=== PATIENT | female | born 1970 | race Caucasian/White ===

== ENCOUNTER 2017-07-21 10:41 | Inpatient (IN) | payer MEDICAID ==
[~2017-07-21] VITALS: Ht 165.1 cm; Wt 66.1 kg
--- NOTE | ~2017-07-21 | HEMODYNAMI ---
PATIENT:AURA BRASHER MEDICAL RECORD: [id number] : 66 LOCATION: D.2223 ADMISSION DATE: 07/21/17 Generatedon:07/22/20179:54 Patient name: AURA BRASHER Patient #: [id number] SSN: : 1970 Date of study: 07/22/2017 Page: Of Hemodynamic Procedure Report Patient Data Patient Demographics Procedure consent was obtained First Name: AURA Gender: Female Last Name: SAMEERA : 1970 Patient #: [id number] Age: 46 year(s) Race: Unknown Additional ID: [id number] Contact details [address]: [address] [place] [address] State: [place] City: [place] Zip code: [address] Admission Admission Data Admission Date: 07/21/2017 Admission Time: 16:02 Room #: D.2223 Procedure Procedure Types Cath Procedure Peripheral Cath Diagnostic Procedure Miscellaneous Procedure Description Procedure Date Procedure Date: 07/22/2017 Procedure Start Time: 9:25 Procedure Staff Name Function Domingo Webster MD Performing Physician Delio Darling RT Monitor Dora Dugan RN Nurse Procedure Medications Medication Administration Route Dosage Versed I.V. 2 mg Fentanyl I.V. 100 mcg Hemodynamics Rest Pre Cath Intra NCS Post Cath Vital Signs Time Heart Resp SPO2 etCO2 NIBP (mmHg) Rhythm Pain Sedation Rate (ipm) (%) (mmHg) Status Level (bpm) 8:43:56 95 89/67(78) NSR 0 (11) 10(A) , No pain 8:48:38 119 16 97 0 126/81(112) NSR 0 (11) 10(A) , No pain 8:52:42 119 13 98 0 125/79(96) NSR 0 (11) 10(A) , No pain 8:56:44 117 13 99 0 120/83(98) NSR 0 (11) 10(A) , No pain 9:00:45 117 13 0 122/78(104) NSR 0 (11) 10(A) , No pain 9:04:47 117 13 99 0 120/80(98) NSR 0 (11) 10(A) , No pain 9:08:49 117 14 0.7 121/78(99) NSR 0 (11) 10(A) , No pain 9:12:50 119 15 99 0 122/78(99) NSR 0 (11) 10(A) , No pain 9:16:54 118 13 99 0.7 121/74(98) NSR 0 (11) 10(A) , No pain 9:20:56 120 14 0.7 118/78(99) NSR 0 (11) 10(A) , No pain 9:24:56 122 15 0.7 123/79(95) NSR 0 (11) 10(A) , No pain 9:28:57 123 10 97 0.7 123/79(94) NSR 0 (11) 10(A) , No pain 9:33:03 120 11 95 0 120/71(94) NSR 0 (11) 10(A) , No pain 9:37:09 118 9 96 0 107/66(80) NSR 0 (11) 10(A) , No pain 9:41:11 116 8 98 0.7 102/63(80) NSR 0 (11) 10(A) , No pain 9:45:10 116 10 99 0.7 107/66(86) NSR 0 (11) 10(A) , No pain 9:49:12 119 17 99 0.7 109/65(82) NSR 0 (11) 10(A) , No pain 9:53:13 115 8 99 0.7 106/67(83) NSR 0 (11) 10(A) , No pain Medications Time Medication Route Dose Verified Delivered Reason Notes Effectivenes s by by 9:32:39 Versed I.V. 2 mg Domingo John for Eleanor Dugan RN sedation 9:32:50 Fentanyl I.V. 100 Domingo John for [facility] Eleanor Dugan RN sedation Procedure Log Time Note 8:40:47 Delio Darling RT (R) (CV) sent for patient. Start room use. 8:41:01 Time tracking: Regular hours 8:41:06 Plan of Care:Hemodynamics will remain stable., Cardiac rhythm will remain stable., Comfort level will be maintained., Respiratory function will remain adequate., Patient/ family verbilizes understanding of procedure., Procedure tolerated without complication., Recovers from procedure without complications.. 8:41:12 Patient arrived from Med/Surg to IR. Patient remains on bed/stretcher for procedure. 8:41:14 Correct patient and procedure confirmed by team. 8:41:16 Signed procedure consent form obtained from patient. 8:41:17 Full Disclosure recording started 8:41:17 8:41:20 H&P Date Dictated: 07/22/2017 Within 30 days and on chart.. 8:41:21 Pre-procedure instructions explained to patient. 8:41:21 Pre-op teaching completed and patient verbalized understanding. 8:41:23 Family in waiting room. 8:41:25 Patient NPO since Midnight. 8:41:30 Is the patient allergic to Iodine/contrast media? No. 8:41:32 Is patient on blood thinner?No 8:41:34 Patient diabetic? No. 8:41:35 8:41:35 ----Pre-sedation anethsthesia assessment.---- 8:41:37 Previous problem with sedation/anesthesia? No ? 8:41:38 Snore? Yes 8:41:40 Sleep apnea? No 8:41:42 Deviated septum? No 8:41:44 Opens mouth fully? Yes 8:41:45 Sticks out tongue? Yes 8:41:48 Airway obstruction? No ? 8:41:59 Dentures? Yes upper 8:42:04 Patient pain scale 0/10 no pain. 8:42:11 IV patent on arrival in left hand with 0.9% NaCl at [facility]. 8:42:16 Sharps counted by scrub and verified by R.N. 8:42:17 Alarms reviewed by R. N. 8:42:23 Right abdomen area was prepped with chlora-prep and draped in sterile fashion 8:42:37 Use device set IR Diagnostic 8:42:38 Bag Decanter ([id number]) opened to sterile field. 8:42:38 Sterile Angiographic Pack opened to sterile field. 8:42:44 ECG and BP/O2 sat monitors applied to patient. 8:42:44 Vital chart was started 9:23:14 Physician arrived 9:24:00 [id number] 8FR CATH DRAIN TRAY opened to sterile field. 9:24:26 --------ALL STOP TIME OUT------ 9:24:27 Final Timeout: patient, procedure, and site verified with staff and physician. All members of the team are in agreement. 9:24:32 Sedation plan: IV Moderate Sedation Medication:Versed, Fentanyl 9:25:07 Procedure started. 9:25:13 Local anesthetic to Abdominal area with Lidocaine 1% by Domingo Webster MD.INITIAL ACCESS ONLY 9:32:39 Versed 2 mg I.V. was administered by Dora Dugan RN; for sedation; 9:32:50 Fentanyl 100 mcg I.V. was administered by Dora Dugan RN; for sedation; 9:39:32 [id number] 8FR CATH DRAIN TRAY opened to sterile field. 9:49:02 Procedure ended.(Physican Out) 9:49:31 Sharps counted by scrub and verified by R.N. 9:49:47 5.1 liters fluid 9:49:50 Insertion/operative site no bleeding no hematoma. 9:50:24 Post-op/insertion site Right Abdominal area dressed using a 4 x 4 and Tegaderm. 9:50:27 Post procedure instruction explained to patient.Patient verbalizes understanding. 9:50:34 Post Abdominal area:stable 9:54:04 Patient transfered to Med/Surg with Bed. 9:54:43 Vital chart was stopped Device Usage Item Name Manufacture Quantity Catalog Hospital Part Current Mini mal Lot# / Number Charge Number Stock Stock Serial# Code Bag Decanter Microtek 1 [id number] () [employer] Sterile Cardinal 1 [id number] 5 Angiographic Health Pack [id number] CareFusion 2 [id number] 8FR CATH DRAIN TRAY Signature Audit Jackson Stage Time Signature Unsigned Intra-Procedure 07/22/2017 Delio 9:54:39 AM Phong RT (R) (CV) Signatures Monitor : Delio Signature : Phong RT Date : Time : [address] [address]
[2017-07-21 11:28] LABS: BASOPHILS 1.2 % (0-2); HEMATOCRIT 36.8 % (36.0-48.0); HEMOGLOBIN 12.2 g/dL (12-16); IMMATURE GRANULOCYTES 0.2 % (0-5); MCH 31.9 pg (26.0-34.0); MCHC 33.2 g/dL (31.0-37.0); MCV 96.3 fL (80.0-100.0); MEAN PLATELET VOLUME 9.1 fL (7.4-10.4); MONOCYTES 6.3 % (2-11); NEUTROPHILS 60.3 % (40-80); PLATELET COUNT 244 10x3/uL (130-400); RBC 3.82 10x6/uL (4.00-5.40); RDW 15.6 % (11.5-14.5); WBC 9.7 10x3/uL (4.8-10.8)
[2017-07-21 11:37] LABS: APTT 46.7 SECONDS (22.8-39.4); INR 2.12 (0.85-1.17); PROTIME 23.1 SECONDS (11.6-15.0)
[2017-07-21 11:43] LABS: ALBUMIN 1.9 g/dL (3.4-5.0); ALKALINE PHOSPHATASE 95 U/L (46-116); ALT (SGPT) 17 U/L (10-68); BILIRUBIN - TOTAL 2.36 mg/dL (0.2-1.3); CALC OSMOLALITY 274 mosm/kg (275-300); CALCIUM 8.6 mg/dL (8.5-10.1); CARBON DIOXIDE 24.7 mmol/L (21.0-32.0); CHLORIDE - SERUM 105 mmol/L (98-107); CREATININE - SERUM 0.8 mg/dL (0.6-1.3); GLUCOSE 93 mg/dL (74-106); PROTEIN - SERUM 8.4 g/dL (6.4-8.2); SODIUM 139 mmol/L (136-145); UREA NITROGEN 5 mg/dL (7-18); eGFR NON AFRICAN AMERICAN 81 mL/min (90-120)
[2017-07-21 11:49] LABS: LIPASE 265 U/L (73-393); PRO BNP 382 pg/mL (0-125)
[2017-07-21 11:52] LABS: POTASSIUM - SERUM 2.9 mmol/L (3.5-5.1)
[2017-07-21 14:43] LABS: APPEARANCE HAZY (CLEAR); BILIRUBIN NEGATIVE (NEGATIVE); COLOR AMBER (YELLOW); GLUCOSE NEGATIVE (NEGATIVE); KETONE NEGATIVE (NEGATIVE); NITRITE NEGATIVE (NEGATIVE); PROTEIN NEGATIVE (NEGATIVE); UROBILINOGEN NORMAL (NORMAL)
[2017-07-21 18:41] VITALS: BP 127/77; BMI 23.6
[2017-07-21 20:00] VITALS: BP 122/73
[2017-07-22] VITALS (11 sets, daily range): BP systolic 96–134; BP diastolic 55–86; Ht 165.1 cm; Wt 66.1 kg
[2017-07-22 03:37] LABS: BASOPHILS 0.6 % (0-2); EOSINOPHILS 0.6 % (0-7); HEMATOCRIT 31.9 % (36.0-48.0); HEMOGLOBIN 10.5 g/dL (12-16); IMMATURE GRANULOCYTES 0.2 % (0-5); LYMPHOCYTES 21.4 % (15-50); MCH 31.5 pg (26.0-34.0); MCHC 32.9 g/dL (31.0-37.0); MCV 95.8 fL (80.0-100.0); MEAN PLATELET VOLUME 9.9 fL (7.4-10.4); MONOCYTES 6.6 % (2-11); NEUTROPHILS 70.6 % (40-80); RBC 3.33 10x6/uL (4.00-5.40); RDW 15.5 % (11.5-14.5); WBC 11.4 10x3/uL (4.8-10.8)
[2017-07-22 03:41] LABS: PLATELET COUNT 190 10x3/uL (130-400)
[2017-07-22 03:47] LABS: INR 2.3 (0.85-1.17); PROTIME 24.7 SECONDS (11.6-15.0)
[2017-07-22 03:51] LABS: ALBUMIN 1.6 g/dL (3.4-5.0); ALKALINE PHOSPHATASE 75 U/L (46-116); ALT (SGPT) 13 U/L (10-68); AMYLASE - SERUM 38 U/L (25-115); CALC OSMOLALITY 265 mosm/kg (275-300); CALCIUM 7.8 mg/dL (8.5-10.1); CARBON DIOXIDE 21.7 mmol/L (21.0-32.0); CHLORIDE - SERUM 103 mmol/L (98-107); CHOL - HDL RATIO 5.4 ratio (2.3-4.1); CHOLESTEROL, TOTAL 103 mg/dL (0-200); CREATININE - SERUM 0.8 mg/dL (0.6-1.3); GLUCOSE 117 mg/dL (74-106); HDL CHOLESTEROL 19 mg/dL (32-96); LDL CHOLESTEROL 69 mg/dL (0-100); LDL-HDL RATIO 3.6 ratio (1.5-3.5); LIPASE 133 U/L (73-393); PRE-ALBUMIN 7.2 mg/dL (18.0-35.7); PROTEIN - SERUM 7.7 g/dL (6.4-8.2); SODIUM 134 mmol/L (136-145); TRIGLYCERIDE 75 mg/dL (30-200); UREA NITROGEN 4 mg/dL (7-18); eGFR NON AFRICAN AMERICAN 81 mL/min (90-120)
[2017-07-22 03:52] LABS: POTASSIUM - SERUM 3.6 mmol/L (3.5-5.1)
[2017-07-22 13:33] LABS: PROTEIN - BODY FLUID 1.1 G/DL
[2017-07-22 14:44] LABS: EOS BF 3 %; MACROPHAGES BF 10 %; NEUT - BF 83 %
[2017-07-22 15:49] LABS: % SATURATION 94 % (15-55); IRON 73 ug/dl (35-150); TOTAL IRON BIND CAPACITY 77 ug/dl (260-445)
[2017-07-22 16:01] LABS: UNSAT IRON BIND CAPACITY 4 ug/dl (150-375)
[2017-07-23] VITALS: BP 107/60
[2017-07-23 04:00] VITALS: BP 124/58
[2017-07-23 05:49] LABS: BASOPHILS 0.4 % (0-2); EOSINOPHILS 0.7 % (0-7); HEMATOCRIT 27.6 % (36.0-48.0); IMMATURE GRANULOCYTES 0.4 % (0-5); LYMPHOCYTES 23.7 % (15-50); MCH 31.6 pg (26.0-34.0); MCHC 32.6 g/dL (31.0-37.0); MCV 96.8 fL (80.0-100.0); MEAN PLATELET VOLUME 9.7 fL (7.4-10.4); MONOCYTES 12.2 % (2-11); NEUTROPHILS 62.6 % (40-80); PLATELET COUNT 113 10x3/uL (130-400); RBC 2.85 10x6/uL (4.00-5.40); RDW 15.5 % (11.5-14.5); WBC 5.5 10x3/uL (4.8-10.8)
[2017-07-23 06:08] LABS: ALKALINE PHOSPHATASE 63 U/L (46-116); ALT (SGPT) 15 U/L (10-68); BILIRUBIN - INDIRECT 1.35 mg/dL (0.00-1.00); BILIRUBIN - TOTAL 2.65 mg/dL (0.2-1.3); CALC OSMOLALITY 265 mosm/kg (275-300); CARBON DIOXIDE 26.1 mmol/L (21.0-32.0); CHLORIDE - SERUM 102 mmol/L (98-107); CREATININE - SERUM 0.8 mg/dL (0.6-1.3); GLUCOSE 117 mg/dL (74-106); LIPASE 102 U/L (73-393); POTASSIUM - SERUM 3.3 mmol/L (3.5-5.1); PROTEIN - SERUM 6.9 g/dL (6.4-8.2); SODIUM 134 mmol/L (136-145); UREA NITROGEN 4 mg/dL (7-18); eGFR NON AFRICAN AMERICAN 81 mL/min (90-120)
[2017-07-23 06:10] LABS: INR 2.11 (0.85-1.17)
[2017-07-23 06:13] LABS: HEPATITIS C ANTIBODY 0.3 (0.0-0.9)
[2017-07-23 06:19] LABS: AMYLASE - SERUM 23 U/L (25-115)
[2017-07-23 07:03] LABS: ERYTHROCYTE SEDIMENTATION RATE 21 mm/hr (0-20)
[2017-07-23 08:49] VITALS: BP 107/65
[2017-07-23 12:36] VITALS: BP 110/64
[2017-07-23 16:36] VITALS: BP 121/11
[2017-07-23 20:00] VITALS: BP 109/59
[2017-07-24] VITALS: BP 107/62
[2017-07-24 04:00] VITALS: BP 106/63
[2017-07-24 04:51] LABS: BASOPHILS 0.4 % (0-2); EOSINOPHILS 1.6 % (0-7); HEMATOCRIT 27.9 % (36.0-48.0); HEMOGLOBIN 9.2 g/dL (12-16); IMMATURE GRANULOCYTES 0.1 % (0-5); LYMPHOCYTES 22.6 % (15-50); MCH 31.3 pg (26.0-34.0); MCV 94.9 fL (80.0-100.0); MEAN PLATELET VOLUME 10.1 fL (7.4-10.4); MONOCYTES 11.3 % (2-11); PLATELET COUNT 113 10x3/uL (130-400); RBC 2.94 10x6/uL (4.00-5.40); RDW 15.3 % (11.5-14.5)
[2017-07-24 04:55] LABS: WBC 6.9 10x3/uL (4.8-10.8)
[2017-07-24 04:59] LABS: CALC OSMOLALITY 260 mosm/kg (275-300); CALCIUM 7.6 mg/dL (8.5-10.1); CARBON DIOXIDE 26.6 mmol/L (21.0-32.0); CHLORIDE - SERUM 99 mmol/L (98-107); CREATININE - SERUM 0.7 mg/dL (0.6-1.3); GLUCOSE 102 mg/dL (74-106); POTASSIUM - SERUM 3.5 mmol/L (3.5-5.1); SODIUM 132 mmol/L (136-145); eGFR NON AFRICAN AMERICAN > 90 mL/min (90-120)
[2017-07-24 05:00] LABS: UREA NITROGEN 2 mg/dL (7-18)
[2017-07-24 09:37] VITALS: BP 111/68
[2017-07-24 11:59] VITALS: BP 111/64
[2017-07-24] MEDS ORDERED: LEVAQUIN750 MG PO (13:27)
[2017-07-24] MEDS ORDERED: FLAGYL500 MG PO (13:28)
[2017-07-24] MEDS ORDERED: ALDACTONE100 MG PO (13:28)
[2017-07-24] MEDS ORDERED: PROTONIX40 MG PO (13:29)
[2017-07-24] MEDS ORDERED: LASIX40 MG PO (13:29)
[2017-07-24] MEDS ORDERED: HYDROCODON-ACE1 EAC6 PO (13:30)
[2017-07-25 12:11] LABS: FOLATE (FOLIC ACID) - SERUM 2.1 ng/mL (>3.0)
== END 2017-07-24 15:07 | disposition home or self-care (01) | DRG 432 ==
LOC: D.ER 10:41 → D.MS 16:02
PROVIDERS: Emergency Medicine; Internal Medicine Gastroenterology; Internal Medicine Nephrology; Radiology Diagnostic Radiology
PROC: 0W9G3ZZ Drainage of Peritoneal Cavity, Percutaneous Approach (ICD-10-PCS; principal; 2017-07-22 09:00)
DX: K70.31 Alcoholic cirrhosis of liver with ascites (principal); K85.20 Alcohol induced acute pancreatitis without necrosis or infection; E43 Unspecified severe protein-calorie malnutrition; K65.2 Spontaneous bacterial peritonitis; F10.21 Alcohol dependence, in remission; K21.9 Gastro-esophageal reflux disease without esophagitis

== ENCOUNTER 2017-10-12 11:20 | Day surgery (SDC) | payer MEDICAID ==
[~2017-10-12] VITALS: Ht 167.6 cm; Wt 52.3 kg
--- NOTE | ~2017-10-12 | OP ---
PATIENT NAME: AURA BRASHER MEDICAL RECORD: [id number] :66 LOCATION:DARY ADMISSION DATE: SURGEON: JESÚS BELLO DO DATE OF OPERATION: 10/12/2017 PROCEDURE: EGD with biopsies. INDICATIONS FOR PROCEDURE: Epigastric pain, cirrhosis, ascites, heartburn, nausea, and vomiting. SCOPE: Olympus video gastroscope. MEDICATIONS: Propofol 290 mg IV per anesthesia. ESTIMATED BLOOD LOSS: Minimal. COMPLICATIONS: None. FINDINGS: Informed consent was given. The patient was made comfortable with the above medication. After reaching an adequate level of sedation by slow IV push, the patient was placed on her left side. The endoscope was then advanced under direct visualization through the mouth to the second portion of the duodenum. The upper, middle, and lower thirds of the esophagus appeared normal. At the GE junction, there was some mild evidence of LA class A reflux-induced esophagitis. The endoscope was advanced into the stomach and retroflexed to view the cardia which appeared normal. Throughout the entire stomach, there was patchy areas of erythema and granularity consistent with possible gastritis. Random biopsies were taken to submit for histology and to rule out H. pylori. Of note, there is no obvious or at least severe portal hypertensive gastropathy. The endoscope was advanced beyond the pylorus into the duodenum where there was granularity and erythema and some villous flattening. A few cold forceps biopsies were taken to submit for histology. The endoscope was then withdrawn back into the esophagus and random biopsies were taken in the mid esophagus to submit for histology. The endoscope was withdrawn from the patient. The patient tolerated the procedure well and there were no complications. IMPRESSION: 1. LA class A reflux-induced esophagitis. 2. Gastritis, biopsies pending. 3. Duodenitis, biopsies pending. PLAN AND RECOMMENDATIONS: 1. Discharge home when recovery parameters are met. 2. Follow up biopsy specimen results. 3. GERD diet and reflux precautions. 4. Trial of Protonix or equivalent PPI 40 mg daily times 60 days. 5. Gastric emptying scan regarding the epigastric pain and nausea and vomiting. 6. Continue routine surveillance of liver labs and ultrasound of the liver to monitor for improvement and overall liver condition. TRANSINT:[id number] Voice Confirmation ID: [id number] DOCUMENT ID: [id number] OPERATIVE REPORT [id number] BRASHER,DALYNJESÚS MEHTA DO at 1135 CC: [id number] DICTATION DATE: 10/12/17 1344 MEDICAL TECHNOLOGIST MICROBIOLOGY: 10/12/17 1405 [facility] 10/12/17 [address] [place] [address]
[~2017-10-12 11:20] MED LIST: ALDACTONE100 MG PO; FLAGYL500 MG PO; HYDROCODON-ACE1 EAC6 PO; LASIX40 MG PO; LEVAQUIN750 MG PO; PROTONIX40 MG PO
[2017-10-12 12:01] VITALS: BP 107/74; Ht 167.6 cm; Wt 52.3 kg
[2017-10-12 12:38] LABS: BASOPHILS 0.5 % (0-2); EOSINOPHILS 12.6 % (0-7); HEMATOCRIT 36.5 % (36.0-48.0); HEMOGLOBIN 12.7 g/dL (12-16); IMMATURE GRANULOCYTES 0.1 % (0-5); LYMPHOCYTES 30.7 % (15-50); MCH 31.5 pg (26.0-34.0); MCHC 34.8 g/dL (31.0-37.0); MCV 90.6 fL (80.0-100.0); MEAN PLATELET VOLUME 9.5 fL (7.4-10.4); MONOCYTES 7.6 % (2-11); NEUTROPHILS 48.5 % (40-80); PLATELET COUNT 115 10x3/uL (130-400); RBC 4.03 10x6/uL (4.00-5.40); RDW 13.9 % (11.5-14.5); WBC 7.7 10x3/uL (4.8-10.8)
[2017-10-12 12:46] LABS: APTT 36.8 SECONDS (22.8-39.4)
[2017-10-12 13:09] LABS: CALC OSMOLALITY 272 mosm/kg (275-300); CALCIUM 9.6 mg/dL (8.5-10.1); CARBON DIOXIDE 26.6 mmol/L (21.0-32.0); CHLORIDE - SERUM 102 mmol/L (98-107); CREATININE - SERUM 0.8 mg/dL (0.6-1.3); GLUCOSE 89 mg/dL (74-106); SODIUM 137 mmol/L (136-145); UREA NITROGEN 12 mg/dL (7-18); eGFR NON AFRICAN AMERICAN 81 mL/min (90-120)
[2017-10-12 13:28] LABS: INR 1.34 (0.85-1.17); PROTIME 16.1 SECONDS (11.6-15.0)
== END 2017-10-12 14:35 | disposition home or self-care (01) ==
LOC: D.OPS 11:20
PROVIDERS: Anesthesiology
DX: K70.31 Alcoholic cirrhosis of liver with ascites (principal); R10.13 Epigastric pain; R11.2 Nausea with vomiting, unspecified; I10 Essential (primary) hypertension; Z01.812 Encounter for preprocedural laboratory examination

== ENCOUNTER → 2017-10-14 10:53 | Outpatient (CLI) | payer MEDICAID ==
[2017-10-12 12:01] VITALS: BMI 18.6
== END | disposition home or self-care (01) ==
LOC: D.NM 10:53
DX: R11.2 Nausea with vomiting, unspecified (principal); R10.13 Epigastric pain

== ENCOUNTER → 2017-10-28 19:49 | Outpatient (CLI) | payer MEDICAID ==
[2017-10-12 12:01] VITALS: BMI 18.6
== END | disposition home or self-care (01) ==
LOC: D.MAMMO 13:15
DX: Z12.31 Encounter for screening mammogram for malignant neoplasm of breast (principal)

== ENCOUNTER → 2017-11-22 08:29 | Outpatient (CLI) | payer MEDICAID ==
[2017-10-12 12:01] VITALS: BMI 18.6
== END | disposition home or self-care (01) ==
LOC: D.US 08:29
DX: R18.8 Other ascites (principal); K74.60 Unspecified cirrhosis of liver

== ENCOUNTER → 2017-11-24 16:51 | Outpatient (CLI) | payer MEDICAID ==
[2017-10-12 12:01] VITALS: BMI 18.6
[2017-11-22 09:02] LABS: BASOPHILS 0.8 % (0-2); EOSINOPHILS 4.8 % (0-7); HEMATOCRIT 35.5 % (36.0-48.0); HEMOGLOBIN 12.6 g/dL (12-16); IMMATURE GRANULOCYTES 0.2 % (0-5); LYMPHOCYTES 45.6 % (15-50); MCHC 35.5 g/dL (31.0-37.0); MCV 90.1 fL (80.0-100.0); MEAN PLATELET VOLUME 9.4 fL (7.4-10.4); MONOCYTES 7.1 % (2-11); NEUTROPHILS 41.5 % (40-80); RBC 3.94 10x6/uL (4.00-5.40); RDW 13.7 % (11.5-14.5); WBC 5.2 10x3/uL (4.8-10.8)
[2017-11-22 09:17] LABS: ALBUMIN 3.3 g/dL (3.4-5.0); ANION GAP 11.4 mmol/L (8-16); BILIRUBIN - DIRECT 0.24 mg/dL (0.00-0.30); BILIRUBIN - INDIRECT 0.73 mg/dL (0.00-1.00); BILIRUBIN - TOTAL 0.97 mg/dL (0.2-1.3); CALCIUM 9.7 mg/dL (8.5-10.1); CARBON DIOXIDE 27.6 mmol/L (21.0-32.0); CREATININE - SERUM 0.9 mg/dL (0.6-1.3); PROTEIN - SERUM 7.6 g/dL (6.4-8.2)
[2017-11-22 09:37] LABS: PLATELET COUNT 140 10x3/uL (130-400)
== END | disposition home or self-care (01) ==
LOC: D.MAMMO 14:00
PROVIDERS: Obstetrics & Gynecology Obstetrics
DX: R92.8 Other abnormal and inconclusive findings on diagnostic imaging of breast (principal)

== ENCOUNTER 2018-03-06 06:02 | Day surgery (SDC) | payer MEDICAID ==
[~2018-03-06] VITALS: Ht 167.6 cm; Wt 54.5 kg
--- NOTE | ~2018-03-06 | OP ---
PATIENT NAME: AURA BRASHER MEDICAL RECORD: [id number] :66 LOCATION:D.OPS ADMISSION DATE: SURGEON: JESÚS BELLO DO DATE OF OPERATION: 03/06/2018 PROCEDURE: Colonoscopy with polypectomy. INDICATIONS FOR PROCEDURE: Constipation, change in bowel habits. SCOPE: Olympus video pediatric colonoscope. MEDICATIONS: Propofol 500 mg IV per anesthesia. WITHDRAWAL TIME: 16 minutes. ESTIMATED BLOOD LOSS: Minimal. COMPLICATIONS: None. FINDINGS: Informed consent was given. The patient was made comfortable with the above medication. After reaching an adequate level of sedation by slow IV push, the patient was placed on her left side. A digital rectal examination was performed and was normal. The endoscope was advanced under direct visualization through the rectum to the cecum and terminal ileum. The appendiceal orifice was visualized. The endoscope was slowly withdrawn and mucosa was carefully examined. The prep quality was good. There were 3 polyps visualized on today's examination. They were all benign-appearing and sessile. They ranged in size from 2-4 mm in diameter. One was located in the transverse colon, another was located in the sigmoid colon, and one was located in the rectum. All three of these polyps were removed using hot forceps completely. Retroflexion was performed in the rectum with visualization of grade I internal hemorrhoids without bleeding. There were no other abnormalities visualized in today's examination. The mucosa of the colon appeared normal throughout. The endoscope was withdrawn from the patient. The patient tolerated the procedure well and there were no complications. IMPRESSION: 1. Three polyps as described above, removed using hot forceps. 2. Grade I internal hemorrhoids without bleeding. PLAN AND RECOMMENDATIONS: 1. Discharge home when recovery parameters are met. 2. Follow up biopsy specimen results. 3. High fiber diet. 4. Supplement diet with Metamucil 1 tablespoon daily in a glass of water. 5. Recall colonoscopy in 5 years. TRANSINT:[id number] Voice Confirmation ID: [id number] DOCUMENT ID: [id number] OPERATIVE REPORT [id number] AURA BRASHER JESÚS BELLO DO at 0740 CC: [id number] DICTATION DATE: 03/06/18 0850 LEAD PRESS OPERATOR: 03/06/18 1046 [facility] 03/06/18 [address] [place] [address]
[2018-03-06 06:31] LABS: INR 1.22 (0.85-1.17); PROTIME 14.9 SECONDS (11.6-15.0)
[2018-03-06 06:32] LABS: APTT 31.2 SECONDS (22.8-39.4)
[2018-03-06 06:38] LABS: ALBUMIN 3.6 g/dL (3.4-5.0); ALKALINE PHOSPHATASE 95 U/L (46-116); ALT (SGPT) 31 U/L (10-68); BILIRUBIN - TOTAL 1.75 mg/dL (0.2-1.3); CALC OSMOLALITY 273 mosm/kg (275-300); CALCIUM 8.9 mg/dL (8.5-10.1); CARBON DIOXIDE 24.8 mmol/L (21.0-32.0); CHLORIDE - SERUM 104 mmol/L (98-107); CREATININE - SERUM 0.8 mg/dL (0.6-1.3); GLUCOSE 89 mg/dL (74-106); POTASSIUM - SERUM 4.1 mmol/L (3.5-5.1); SODIUM 138 mmol/L (136-145); UREA NITROGEN 10 mg/dL (7-18); eGFR NON AFRICAN AMERICAN 81 mL/min (90-120)
[2018-03-06] MEDS ORDERED: REGLAN5 MG PO (07:14)
[2018-03-06 07:15] LABS: HEMATOCRIT 42.7 % (36.0-48.0); HEMOGLOBIN 15.5 g/dL (12-16); MCH 35.5 pg (26.0-34.0); MCHC 36.3 g/dL (31.0-37.0); MCV 97.7 fL (80.0-100.0); MEAN PLATELET VOLUME 10.2 fL (7.4-10.4); RBC 4.37 10x6/uL (4.00-5.40); RDW 13.7 % (11.5-14.5); WBC 9.2 10x3/uL (4.8-10.8)
[2018-03-06 07:19] VITALS: BP 128/62; Ht 167.6 cm; Wt 54.5 kg
== END 2018-03-06 10:03 | disposition home or self-care (01) ==
LOC: D.OPS 06:02
PROVIDERS: Anesthesiology
DX: K63.5 Polyp of colon (principal); K62.1 Rectal polyp; K64.0 First degree hemorrhoids; Z01.812 Encounter for preprocedural laboratory examination

== ENCOUNTER → 2018-07-14 08:04 | Outpatient (CLI) | payer MEDICAID ==
[2018-03-06 07:19] VITALS: BMI 19.4
[~2018-07-14 08:04] MED LIST changes: +REGLAN5 MG PO
[2018-07-14 08:52] LABS: BASOPHILS 0.6 % (0-2); HEMATOCRIT 42.1 % (36.0-48.0); HEMOGLOBIN 15.4 g/dL (12-16); IMMATURE GRANULOCYTES 0.3 % (0-5); LYMPHOCYTES 36.5 % (15-50); MCH 33.6 pg (26.0-34.0); MCHC 36.6 g/dL (31.0-37.0); MCV 91.7 fL (80.0-100.0); MEAN PLATELET VOLUME 9.5 fL (7.4-10.4); MONOCYTES 6.5 % (2-11); NEUTROPHILS 51.1 % (40-80); RBC 4.59 10x6/uL (4.00-5.40); RDW 13.5 % (11.5-14.5); WBC 11.5 10x3/uL (4.8-10.8)
[2018-07-14 09:04] LABS: PLATELET COUNT 210 10x3/uL (130-400)
[2018-07-14 09:15] LABS: ALBUMIN 3.5 g/dL (3.4-5.0); BILIRUBIN - DIRECT 0.23 mg/dL (0.00-0.30); BILIRUBIN - INDIRECT 0.54 mg/dL (0.00-1.00); BILIRUBIN - TOTAL 0.77 mg/dL (0.2-1.3); PROTEIN - SERUM 8.2 g/dL (6.4-8.2)
[2018-07-14 09:30] LABS: INR 1.15 (0.85-1.17); PROTIME 14.2 SECONDS (11.6-15.0)
== END | disposition home or self-care (01) ==
LOC: D.US 06-26 09:30 → D.LAB 06-26 10:00 → D.US 07-03 09:53
PROVIDERS: Internal Medicine Gastroenterology
DX: K74.60 Unspecified cirrhosis of liver (principal); R18.8 Other ascites

== ENCOUNTER → 2018-11-16 10:50 | Outpatient (CLI) | payer MEDICAID ==
[2018-03-06 07:19] VITALS: BMI 19.4
[2018-11-16 11:56] LABS: HEMOGLOBIN 14.9 g/dL (12-16); LYMPHOCYTES 32.2 % (15-50); MCH 33.9 pg (26.0-34.0); MCHC 36.3 g/dL (31.0-37.0); MCV 93.4 fL (80.0-100.0); MEAN PLATELET VOLUME 9.3 fL (7.4-10.4); NEUTROPHILS 60.3 % (40-80); PLATELET COUNT 175 10x3/uL (130-400); RBC 4.39 10x6/uL (4.00-5.40); WBC 7.3 10x3/uL (4.8-10.8)
[2018-11-16 12:03] LABS: INR 1.08 (0.85-1.17); PROTIME 13.5 SECONDS (11.6-15.0)
[2018-11-16 12:09] LABS: ALBUMIN 3.4 g/dL (3.4-5.0); ANION GAP 10.4 mmol/L (8-16); BILIRUBIN - DIRECT 0.24 mg/dL (0.00-0.30); BILIRUBIN - INDIRECT 0.81 mg/dL (0.00-1.00); BILIRUBIN - TOTAL 1.05 mg/dL (0.2-1.3); CALCIUM 9.2 mg/dL (8.5-10.1); CARBON DIOXIDE 27.5 mmol/L (21.0-32.0); CREATININE - SERUM 0.9 mg/dL (0.6-1.3); POTASSIUM - SERUM 3.9 mmol/L (3.5-5.1); PROTEIN - SERUM 7.6 g/dL (6.4-8.2)
== END | disposition home or self-care (01) ==
LOC: D.US 10:50 → D.LAB 01-12 09:15 → D.US 01-12 09:30
PROVIDERS: ATTEND Internal Medicine Gastroenterology
DX: K70.30 Alcoholic cirrhosis of liver without ascites (principal); K31.84 Gastroparesis

== ENCOUNTER → 2018-12-20 08:42 | Outpatient (CLI) | payer MEDICAID ==
[2018-03-06 07:19] VITALS: BMI 19.4
== END | disposition home or self-care (01) ==
LOC: D.MRI 08:42
PROVIDERS: ATTEND Internal Medicine Gastroenterology
DX: R93.89 Abnormal findings on diagnostic imaging of other specified body structures (principal)

== ENCOUNTER 2019-02-27 10:27 | Emergency (ER) | payer SELFPAY ==
[~2019-02-27] VITALS: Ht 167.6 cm; Wt 72.7 kg
[2019-02-27 10:48] VITALS: Ht 167.6 cm; Wt 72.7 kg
[2019-02-27 11:14] LABS: BASOPHILS 0.4 % (0-2); EOSINOPHILS 4.3 % (0-7); HEMATOCRIT 45.1 % (36.0-48.0); HEMOGLOBIN 16.6 g/dL (12-16); IMMATURE GRANULOCYTES 0.2 % (0-5); LYMPHOCYTES 31.9 % (15-50); MCH 35.6 pg (26.0-34.0); MCHC 36.8 g/dL (31.0-37.0); MCV 96.8 fL (80.0-100.0); MONOCYTES 7.1 % (2-11); NEUTROPHILS 56.1 % (40-80); PLATELET COUNT 166 10x3/uL (130-400); RBC 4.66 10x6/uL (4.00-5.40); RDW 13.3 % (11.5-14.5); WBC 8.9 10x3/uL (4.8-10.8)
[2019-02-27 11:31] LABS: ALBUMIN 3.4 g/dL (3.4-5.0); ALKALINE PHOSPHATASE 98 U/L (46-116); ALT (SGPT) 22 U/L (10-68); BILIRUBIN - TOTAL 1.35 mg/dL (0.2-1.3); CALC OSMOLALITY 279 mosm/kg (275-300); CALCIUM 10.2 mg/dL (8.5-10.1); CARBON DIOXIDE 26.5 mmol/L (21.0-32.0); CHLORIDE - SERUM 105 mmol/L (98-107); CREATININE - SERUM 0.9 mg/dL (0.6-1.3); GLUCOSE 99 mg/dL (74-106); POTASSIUM - SERUM 4.1 mmol/L (3.5-5.1); PROTEIN - SERUM 7.5 g/dL (6.4-8.2); SODIUM 141 mmol/L (136-145); UREA NITROGEN 10 mg/dL (7-18); eGFR NON AFRICAN AMERICAN 70 mL/min (90-120)
[2019-02-27 11:35] LABS: AMYLASE - SERUM 96 U/L (25-115); LIPASE 348 U/L (73-393)
[2019-02-27 11:39] LABS: TROPONIN-I < 0.017 ng/mL (0.000-0.060)
[2019-02-27 12:39] LABS: INR 1.15 (0.85-1.17); PROTIME 14.2 SECONDS (11.6-15.0)
[2019-02-27 12:59] LABS: APPEARANCE HAZY (CLEAR); COLOR DK YELLOW (YELLOW); GLUCOSE NEGATIVE (NEGATIVE); KETONE NEGATIVE (NEGATIVE); NITRITE NEGATIVE (NEGATIVE); PROTEIN NEGATIVE (NEGATIVE)
[2019-02-27 13:00] LABS: BACTERIA MODERATE /hpf (NONE SEEN); BILIRUBIN NEGATIVE (NEGATIVE); EPITHELIAL CELLS 0-5 /hpf (0-5); MUCUS <1+ /lpf (NONE SEEN); RED CELLS - URINE RARE /hpf (0-5); WHITE CELLS - URINE 0-5 /hpf (0-5)
[2019-02-27] MEDS ORDERED: ZOFRAN ODT4 MG/UDTAB PO (13:14)
[2019-02-27 13:43] VITALS: BP 118/75
== END 2019-02-27 13:43 | disposition home or self-care (01) ==
LOC: D.ER 10:27
PROVIDERS: Family Medicine
DX: K21.9 Gastro-esophageal reflux disease without esophagitis (principal); K74.60 Unspecified cirrhosis of liver